=== PATIENT | male | born 1990 | race American Indian/Alaskan Native ===

== ENCOUNTER 2018-08-23 00:31 | Emergency (ER) | payer SELFPAY ==
[2018-08-23] MEDS ORDERED: IBUPROFEN PO ONE (06:22)
[2018-08-23] MEDS ORDERED: PROVENTIL IH ONE (07:19)
[2018-08-23] MEDS ORDERED: TRIMOX PO ONE (07:19)
[2018-08-23] MEDS ORDERED: SOLU-Medrol IM ONE (07:19)
--- NOTE | 2018-08-23 08:08 | Emergency Department Report ---
Minor Respiratory - HPI Chief Complaint: Fever Stated Complaint: FEVER HEAD PAIN SORE THROAT Time Seen by Provider: 08/23/18 07:08 Duration: 2 Days Pain Location: Throat, Nose, Chest Severity: mild Minor Respiratory: Yes Sore Throat, Yes Able to Tolerate Fluids, Yes Cough, No Rhinorrhea, No Ear Pain, No Sick Contacts, No Hemoptysis, No Chest Pain, No Shortness of Breath, No Fever Other History: pT is a 28-year-old male who comes in with upper respiratory signs and symptoms for 3 days. He endorses a sore throat, headache and cough. Patient denies any major medical problems and is on no home medications. ED Review of Systems ROS: Stated complaint: FEVER HEAD PAIN SORE THROAT Other details as noted in HPI Comment: All other systems reviewed and negative ED Past Medical Hx - Past Medical History Previous Medical History?: Yes Hx Asthma: Yes - Surgical History Past Surgical History?: Yes Additional Surgical History: tonsil - Social History Smoking Status: Current Every Day Smoker Substance Use Type: None - Medications Home Medications: Home Medications Medication Instructions Recorded Confirmed Last Taken Type Amoxicillin [Trimox CAP] 500 mg PO BID #20 capsule 08/23/18 Unknown Rx Cetirizine HCl [ZyrTEC] 10 mg PO DAILY #30 capsule 08/23/18 Unknown Rx Fluticasone [Flonase] 1 spray NS QDAY #1 bottle 08/23/18 Unknown Rx predniSONE [Deltasone] 20 mg PO DAILY #5 tablet 08/23/18 Unknown Rx Minor Respiratory Exam - Exam General: Vital signs noted. No distress. Alert and acting appropriately. HEENT: Yes Moist Mucous Membranes, No Pharyngeal Erythema, No Pharyngeal Exudates, No Rhinorrhea, No Conjuctival Injection, No Frontal Tenderness, No Maxillary Tenderness Ear: Neither TM Bulge, Neither TM Erythema, Neither EAC Pain, Neither EAC Discharge Neck: Yes Supple, No Adenopathy Lungs: Yes Good Air Exchange, Yes Wheezes, Yes Cough, No Ronchi, No Stridor Heart: Yes Regular, No Murmur Abdomen: No Tenderness Skin: No Rash Neurologic: Alert and oriented, no deficits. Musculoskeletal: Unremarkable. ED Course Vital Signs 08/23/18 08/23/18 08/23/18 00:37 06:20 06:23 Temperature 99.8 F H 101.2 F H Pulse Rate 100 H 102 H Respiratory 18 18 18 Rate Blood Pressure 119/72 114/67 [Right] O2 Sat by Pulse 96 94 94 Oximetry ED Medical Decision Making - Radiology Data Radiology results: report reviewed, image reviewed - Medical Decision Making Patient medicated and given a respiratory treatment in the ER. Symptoms improved. Wheezing decreased. Patient is ambulatory without shortness of breath or chest pain. Patient has been counseled on discharge planning care. Vital Signs 08/23/18 08/23/18 08/23/18 00:37 06:20 06:23 Temperature 99.8 F H 101.2 F H Pulse Rate 100 H 102 H Respiratory 18 18 18 Rate Blood Pressure 119/72 114/67 [Right] O2 Sat by Pulse 96 94 94 Oximetry - Differential Diagnosis URTI RO PNA Critical care attestation.: If time is entered above; I have spent that time in minutes in the direct care of this critically ill patient, excluding procedure time. ED Disposition Clinical Impression: URTI (acute upper respiratory infection), Bronchitis Disposition: - TO HOME OR SELFCARE Is pt being admited?: No Does the pt Need Aspirin: No Condition: Stable Instructions: Acute Bronchitis (ED) Additional Instructions: DIET TOLERATED MEDS ORDERED TODAY IN ER FOLLOW INSTRUCTIONS ON THE BOTTLE FOLLOW UP PCP WITHIN 48 HOURS TO ENSURE YOU ARE GETTING BETTER ACTIVITY TOLERATED MOTRIN OR TYLENOL FOR PAIN OR FEVER RETURN TO THE ER FOR WORSENING SYMPTOMS NOT RELIEVED BY YOUR MEDICATIONS. Prescriptions: predniSONE [Deltasone] 20 mg PO DAILY #5 tablet Fluticasone [Flonase] 1 spray NS QDAY #1 bottle Amoxicillin [Trimox CAP] 500 mg PO BID #20 capsule Cetirizine HCl [ZyrTEC] 10 mg PO DAILY #30 capsule Referrals: ABI DAN MD [Primary Care Provider] - 3-5 Days Forms: Accompanied Note, Work/School Release Form(ED) Time of Disposition: 08:07
[2018-08-23 08:55] VITALS: BP 111/55
== END 2018-08-23 08:53 | disposition home or self-care (01) ==
LOC: ED 00:31
DX: J06.9 Acute upper respiratory infection, unspecified (principal); J40 Bronchitis, not specified as acute or chronic; F17.200 Nicotine dependence, unspecified, uncomplicated
CPT/HCPCS: 71046; 94640; 96372; 99283; J2930